=== PATIENT | female | born 1985 | race Caucasian/White ===

== ENCOUNTER 2016-12-04 23:23 | Emergency (ER) | payer OTHER ==
[2016-12-04 23:29] VITALS: BP 126/83
== END 2016-12-05 01:27 | disposition home or self-care (01) ==
LOC: ED 23:23
DX: J20.9 Acute bronchitis, unspecified (principal); E66.9 Obesity, unspecified

== ENCOUNTER 2017-01-02 10:20 | Emergency (ER) | payer OTHER ==
[2017-01-02 10:50] VITALS: BP 135/64
== END 2017-01-02 10:50 | disposition home or self-care (01) ==
LOC: ED 10:20
DX: S60.562A Insect bite (nonvenomous) of left hand, initial encounter (principal); S60.561A Insect bite (nonvenomous) of right hand, initial encounter; S90.562A Insect bite (nonvenomous), left ankle, initial encounter; R10.9 Unspecified abdominal pain; S90.561A Insect bite (nonvenomous), right ankle, initial encounter; W57.XXXA Bitten or stung by nonvenomous insect and other nonvenomous arthropods, initial encounter; Y93.89 Activity, other specified; Y99.8 Other external cause status; Y92.89 Other specified places as the place of occurrence of the external cause

== ENCOUNTER 2018-05-14 00:18 | Emergency (ER) | payer OTHER ==
[~2018-05-14] VITALS: Ht 149.9 cm; Wt 98.0 kg
[2018-05-14 00:29] VITALS: Ht 149.9 cm; Wt 98.0 kg
[2018-05-14 01:14] VITALS: BP 134/85
== END 2018-05-14 01:14 | disposition home or self-care (01) ==
LOC: ED 00:18
DX: J06.9 Acute upper respiratory infection, unspecified (principal); M79.1 Myalgia